=== PATIENT | male | born 1965 | race American Indian/Alaskan Native ===

== ENCOUNTER 2021-12-21 17:12 | Emergency (ER) | payer OTHER ==
[2021-12-21] MEDS ORDERED: methylPREDNISolone Sodium Succinate 125 MG/2 ML SDV IM ONE (17:26)
[2021-12-21] MEDS ORDERED: Albuterol/Ipratropium 3.0-0.5 MG/3 ML Neb Soln NEB ONE (17:26)
[2021-12-21] MEDS ORDERED: Azithromycin 500 MG Tab PO STA (17:47)
[2021-12-21] MEDS ORDERED: amLODIPine 10 MG Tab PO STA (18:13)
== END 2021-12-21 18:30 | disposition home or self-care (01) ==
LOC: FB.ED 17:12
DX: J45.901 Unspecified asthma with (acute) exacerbation (principal); I10 Essential (primary) hypertension
CPT/HCPCS: 71045; 94640; 96372; 99283; 99285-25; A9270-GY; J2930; J7620

== ENCOUNTER 2023-03-22 18:16 | Emergency (ER) | payer OTHER ==
[2023-03-22] MEDS: Acetaminophen/oxyCODONE 325-5 MG Tab PO PRN (18:33)
== END 2023-03-22 19:58 | disposition home or self-care (01) ==
LOC: FB.ED 18:16
DX: S62.111A Displaced fracture of triquetrum [cuneiform] bone, right wrist, initial encounter for closed fracture (principal); S63.501A Unspecified sprain of right wrist, initial encounter; W01.0XXA Fall on same level from slipping, tripping and stumbling without subsequent striking against object, initial encounter
CPT/HCPCS: 73110-RT; 73130-RT; 99283; A9270-GY